=== PATIENT | female | born 1965 | race Caucasian/White ===

== ENCOUNTER → 2016-07-31 | Outpatient (CLI) | payer BC ==
--- NOTE | 2016-08-01 11:12 | MM ---
Reason for exam: screening (asymptomatic). Last mammogram was performed 2 years and 10 months ago. History: Taking hormonal contraceptives. Physical Findings: A clinical breast exam by your physician is recommended on an annual basis and results should be correlated with mammographic findings. MG Screening Mammo w CAD Bilateral CC and MLO view(s) were taken. Prior study comparison: October 06, 2013, bilateral MG screening mammo w CAD. November 27, 2011, bilateral digital screening mammo w/CAD. June 20, 2010, bilateral digital screening mammo w/CAD. There are scattered fibroglandular densities. No significant changes when compared with prior studies. ASSESSMENT: Negative, BI-RAD 1 RECOMMENDATION: Routine screening mammogram of both breasts in 1 year.
== END | disposition home or self-care (01) ==
LOC: RADMAMWWP 13:06
PROVIDERS: ATTEND Obstetrics & Gynecology
DX: Z12.31 Encounter for screening mammogram for malignant neoplasm of breast (principal)

== ENCOUNTER → 2016-10-03 | Outpatient (CLI) | payer BC ==
--- NOTE | 2016-10-03 21:23 | CT ---
EXAMINATION TYPE: CT abdomen pelvis w con DATE OF EXAM: 10/03/2016 COMPARISON: NONE HISTORY: Left lower quadrant pain & bloating CT DLP: 432.5 mGycm Automated exposure control for dose reduction was used. TECHNIQUE: Helical acquisition of images from the lung bases through the pelvis have been completed. CONTRAST: Performed with Oral Contrast and with IV Contrast, patient injected with 100 mL of Omnipaque 300. FINDINGS: LUNG BASES: No significant abnormality is appreciated. AORTA: No significant abnormality is appreciated. LIVER/GB: No significant abnormality is appreciated. PANCREAS: No significant abnormality is seen. SPLEEN: No significant abnormality is seen. ADRENALS: No significant abnormality is seen. KIDNEYS: No significant abnormality is seen. REPRODUCTIVE ORGANS: Left adnexal region shows a ring-enhancing focus likely within the ovary measuri ng 18 mm x 26 m with central low attenuation. BOWEL: Some diverticular changes associated with the sigmoid colon and there is retained fecal debri s throughout the distribution of the colon FREE AIR: No Free Air visible. ASCITES: None visible. PELVIC ADENOPATHY: None visualized. RETROPERITONEAL ADENOPATHY: No Retroperitoneal Adenopathy visible. URINARY BLADDER: No significant abnormality is seen. OSSEOUS STRUCTURES: No significant abnormality is seen. IMPRESSION: THERE MAY BE INVOLUTION OF THE LEFT OVARIAN CYST, FOLLOW-UP SUGGESTED. DIVERTICULOSIS.
== END | disposition home or self-care (01) ==
LOC: RADCTMAIN 17:32
PROVIDERS: ATTEND Family Medicine
DX: R10.32 Left lower quadrant pain (principal)
CPT/HCPCS: 74177; Q9967

== ENCOUNTER → 2017-11-26 | Outpatient (CLI) | payer BC ==
--- NOTE | 2017-11-27 11:18 | MM ---
Reason for exam: screening (asymptomatic). Last mammogram was performed 1 year and 4 months ago. History: Taking hormonal contraceptives. Physical Findings: A clinical breast exam by your physician is recommended on an annual basis and results should be correlated with mammographic findings. MG 3D Screening Mammo W/Cad Bilateral CC and MLO view(s) were taken. Prior study comparison: July 31, 2016, bilateral MG screening mammo w CAD. October 06, 2013, bilateral MG screening mammo w CAD. The breast tissue is heterogeneously dense. This may lower the sensitivity of mammography. No significant changes when compared with prior studies. ASSESSMENT: Negative, BI-RAD 1 RECOMMENDATION: Routine screening mammogram of both breasts in 1 year.
== END ==
LOC: RADMAMWWP 16:31
PROVIDERS: ATTEND Obstetrics & Gynecology
DX: Z12.31 Encounter for screening mammogram for malignant neoplasm of breast (principal)
CPT/HCPCS: 77063; 77067

== ENCOUNTER 2018-05-09 11:19 | Emergency (ER) | payer BC ==
[2018-05-09] MEDS ORDERED: KETOROLAC 30 MG/ML 1 ML VIAL IVP STA (12:03)
[2018-05-09] MEDS ORDERED: SODIUM CHLORIDE 0.9% 1,000 ML IV STA (12:03)
[2018-05-09] MEDS ORDERED: MORPHINE SULFATE 4 MG/ML SYRINGE IV STA (12:03)
--- NOTE | 2018-05-09 12:36 | ED ---
Abdominal Pain HPI - General Chief Complaint: Abdominal Pain Stated Complaint: Left sided flank pain Time Seen by Provider: 05/09/18 11:24 Source: patient, RN notes reviewed, old records reviewed Mode of arrival: ambulatory Limitations: no limitations - History of Present Illness Initial Comments: This is a 52-year-old female the ER today. This patient presents today for evaluation regards to abdominal pain. Patient is has been to abdominal pain for years. Abnormal vaginal bleeding for 21 years, abdominal pain for about 8 years, history of colonoscopy showing diverticulosis an episode of diverticulitis 1 year ago. Patient states pain feels similar to both of these events currently. Denies fevers. No abnormal bowel movements. No dysuria MD Complaint: abdominal pain (Left lower quadrant), flank pain, other (Suprap ubic pain) -: days(s), week(s), month(s), year(s) Location: LLQ, suprapubic Radiation: LLQ, suprapubic Migration to: suprapubic Severity: moderate Severity scale (1-10): 7 Quality: cramping, aching Consistency: constant Improves With: nothing Worsens With: nothing Associated Symptoms: nausea, constipation - Related Data Home Medications Medication Instructions Recorded Confirmed Evening [place] Oil 500 mg PO W/SUPPER 01/11/17 05/09/18 Magnesium 1 tab PO W/SUPPER 01/11/17 05/09/18 Vitamin C/Biotin [Hair, Skin and 1 tab PO W/SUPPER 01/11/17 05/09/18 Nails] Fluticasone Propionate [Flonase 1 spray EA NOSTRIL DAILY PRN 05/09/18 05/09/18 Allergy Relief] [place] 1 tab PO W/SUPPER 05/09/18 05/09/18 Vegan Women's Multi 1 tab PO W/SUPPER 05/09/18 05/09/18 Allergies Allergy/AdvReac Type Severity Reaction Status Date / Time codeine AdvReac Nausea & Verified 05/09/18 12:18 Vomiting latex AdvReac Dyspnea Verified 05/09/18 12:18 Review of Systems ROS Statement: Those systems with pertinent positive or pertinent negative responses have been documented in the HPI. ROS Other: All systems not noted in ROS Statement are negative. Past Medical History Past Medical History: Asthma Additional Past Medical History / Comment(s): LOWER LEFT ABD PAIN (LEFT OVARIAN CYST) PER PATIENT. Trigeminal neuralgia. Diverticulosis/itis. History of Any Multi-Drug Resistant Organisms: None Reported Past Surgical History: Section Additional Past Surgical History / Comment(s): DIAGNOSTIC LAB (2014). foot surgery and cystoscopy Past Anesthesia/Blood Transfusion Reactions: Motion Sickness Past Psychological History: No Psychological Hx Reported Smoking Status: Never smoker Past Alcohol Use History: Rare Past Drug Use History: None Reported - Past Family History Mother Family Medical History: No Reported History General Exam Limitations: no limitations General appearance: alert, in no apparent distress Head exam: Present: atraumatic, normocephalic, normal inspection Eye exam: Present: normal appearance, PERRL, EOMI. Absent: scleral icterus, conjunctival injection, periorbital swelling ENT exam: Present: normal exam, mucous membranes moist Neck exam: Present: normal inspection. Absent: tenderness, meningismus, lymphadenopathy Respiratory exam: Present: normal lung sounds bilaterally. Absent: respiratory distress, wheezes, rales, rhonchi, stridor Cardiovascular Exam: Present: regular rate, normal rhythm, normal heart sounds. Absent: systolic murmur, diastolic murmur, rubs, gallop, clicks GI/Abdominal exam: Present: soft, tenderness, guarding (Suprapubic and left lower quadrant), normal bowel sounds. Absent: distended, rebound, rigid Extremities exam: Present: normal inspection, full ROM, normal capillary refill. Absent: tenderness, pedal edema, joint swelling, calf tenderness Back exam: Present: normal inspection Neurological exam: Present: alert, oriented X3, CN II-XII intact Psychiatric exam: Present: normal affect, normal mood Skin exam: Present: warm, dry, intact, normal color. Absent: rash Course Vital Signs 05/09/18 11:21 Temperature 97.8 F Pulse Rate 82 Respiratory 20 Rate Blood Pressure 132/60 O2 Sat by Pulse 100 Oximetry - Reevaluation(s) Reevaluation #1: 05/09/18 12:45 Medical records reviewed Reevaluation #2: 05/09/18 12:45 Patient's pain is improved Medical Decision Making - Medical Decision Making 52 female the ER for evaluation presents today for evasive abdominal pain positive diverticulitis, we'll trial outpatient therapy. - Lab Data Result diagrams: 05/09/18 12:31 05/09/18 12:31 Lab Results 05/09/18 05/09/18 05/09/18 Range/Units 12:31 12:31 12:31 WBC 10.9 H (3.8-10.6) k/uL RBC 4.38 (3.80-5.40) m/uL Hgb 13.2 (11.4-16.0) gm/dL Hct 40.0 (34.0-46.0) % MCV 91.5 (80.0-100.0) fL MCH 30.2 (25.0-35.0) pg MCHC 33.0 (31.0-37.0) g/dL RDW 12.5 (11.5-15.5) % Plt Count 311 (150-450) k/uL Neutrophils % 79 % Lymphocytes % 14 % Monocytes % 4 % Eosinophils % 1 % Basophils % 1 % Neutrophils # 8.6 H (1.3-7.7) k/uL Lymphocytes # 1.6 (1.0-4.8) k/uL Monocytes # 0.5 (0-1.0) k/uL Eosinophils # 0.1 (0-0.7) k/uL Basophils # 0.1 (0-0.2) k/uL Sodium 138 (137-145) mmol/L Potassium 4.5 (3.5-5.1) mmol/L Chloride 104 (98-107) mmol/L Carbon Dioxide 22 (22-30) mmol/L Anion Gap 12 mmol/L BUN 17 (7-17) mg/dL Creatinine 0.90 (0.52-1.04) mg/dL Est GFR (CKD-EPI)AfAm 86 (>60 ml/min/1.73 sqM) Est GFR (CKD-EPI)NonAf 75 (>60 ml/min/1.73 sqM) Glucose 81 (74-99) mg/dL Plasma Lactic Acid Andrew 0.9 (0.7-2.0) mmol/L Calcium 10.0 (8.4-10.2) mg/dL Total Bilirubin 1.6 H (0.2-1.3) mg/dL AST 26 (14-36) U/L ALT 29 (9-52) U/L Alkaline Phosphatase 45 (38-126) U/L Total Protein 7.1 (6.3-8.2) g/dL Albumin 4.5 (3.5-5.0) g/dL Amylase <30 L (30-110) U/L Lipase 37 (23-300) U/L Urine Color Urine Appearance (Clear) Urine pH (5.0-8.0) Ur Specific [place] (1.001-1.035) Urine Protein (Negative) Urine Glucose (UA) (Negative) Urine Ketones (Negative) Urine Blood (Negative) Urine Nitrite (Negative) Urine Bilirubin (Negative) Urine Urobilinogen (<2.0) mg/dL Ur Leukocyte Esterase (Negative) Urine RBC (0-5) /hpf Urine WBC (0-5) /hpf Ur Squamous Epith Cells (0-4) /hpf Urine Mucus (None) /hpf 05/09/18 Range/Units 12:31 WBC (3.8-10.6) k/uL RBC (3.80-5.40) m/uL Hgb (11.4-16.0) gm/dL Hct (34.0-46.0) % MCV (80.0-100.0) fL MCH (25.0-35.0) pg MCHC (31.0-37.0) g/dL RDW (11.5-15.5) % Plt Count (150-450) k/uL Neutrophils % % Lymphocytes % % Monocytes % % Eosinophils % % Basophils % % Neutrophils # (1.3-7.7) k/uL Lymphocytes # (1.0-4.8) k/uL Monocytes # (0-1.0) k/uL Eosinophils # (0-0.7) k/uL Basophils # (0-0.2) k/uL Sodium (137-145) mmol/L Potassium (3.5-5.1) mmol/L Chloride (98-107) mmol/L Carbon Dioxide (22-30) mmol/L Anion Gap mmol/L BUN (7-17) mg/dL Creatinine (0.52-1.04) mg/dL Est GFR (CKD-EPI)AfAm (>60 ml/min/1.73 sqM) Est GFR (CKD-EPI)NonAf (>60 ml/min/1.73 sqM) Glucose (74-99) mg/dL Plasma Lactic Acid Andrew (0.7-2.0) mmol/L Calcium (8.4-10.2) mg/dL Total Bilirubin (0.2-1.3) mg/dL AST (14-36) U/L ALT (9-52) U/L Alkaline Phosphatase (38-126) U/L Total Protein (6.3-8.2) g/dL Albumin (3.5-5.0) g/dL Amylase (30-110) U/L Lipase (23-300) U/L Urine Color Yellow Urine Appearance Clear (Clear) Urine pH 5.5 (5.0-8.0) Ur Specific [place] 1.023 (1.001-1.035) Urine Protein Negative (Negative) Urine Glucose (UA) Negative (Negative) Urine Ketones 2+ H (Negative) Urine Blood Small H (Negative) Urine Nitrite Negative (Negative) Urine Bilirubin Negative (Negative) Urine Urobilinogen <2.0 (<2.0) mg/dL Ur Leukocyte Esterase Negative (Negative) Urine RBC 2 (0-5) /hpf Urine WBC 1 (0-5) /hpf Ur Squamous Epith Cells 2 (0-4) /hpf Urine Mucus Rare H (None) /hpf - Radiology Data Radiology results: report reviewed (CT abdomen pelvis positive for diverticulitis ultrasound is negative), image reviewed Disposition Clinical Impression: Abdominal pain, Diverticulitis Disposition: HOME SELF-CARE Condition: Good Instructions (If sedation given, give patient instructions): Diverticulitis (ED), Diverticulitis Diet (ED) Is patient prescribed a controlled substance at d/c from ED?: No Referrals: Josh Huber DO [Primary Care Provider] - 1-2 days
[2018-05-09 12:44] LABS: Basophils # (A) 0.1 k/uL (0-0.2); Basophils % (A) 1 %; Eosinophils # (A) 0.1 k/uL (0-0.7); Eosinophils % (A) 1 %; HGB 13.2 gm/dL (11.4-16.0); Lymphocytes # (A) 1.6 k/uL (1.0-4.8); Lymphocytes % (A) 14 %; MCH 30.2 pg (25.0-35.0); MCV 91.5 fL (80.0-100.0); Mean Platelet Volume 7.4; Monocytes # (A) 0.5 k/uL (0-1.0); Monocytes % (A) 4 %; Neutrophils # (A) 8.6 k/uL (1.3-7.7); Neutrophils % (A) 79 %; Platelet Count 311 k/uL (150-450); RBC 4.38 m/uL (3.80-5.40); RDW 12.5 % (11.5-15.5); WBC 10.9 k/uL (3.8-10.6)
[2018-05-09 12:50] LABS: ALT 29 U/L (9-52); AST 26 U/L (14-36); Albumin 4.5 g/dL (3.5-5.0); Alkaline Phosphatase 45 U/L (38-126); Amylase <30 U/L (30-110); Anion Gap 12 mmol/L; Blood Urea Nitrogen 17 mg/dL (7-17); Carbon Dioxide 22 mmol/L (22-30); Chloride 104 mmol/L (98-107); Glucose 81 mg/dL (74-99); Lipase 37 U/L (23-300); Potassium 4.5 mmol/L (3.5-5.1); Sodium 138 mmol/L (137-145); Total Bilirubin 1.6 mg/dL (0.2-1.3); Total Protein 7.1 g/dL (6.3-8.2)
[2018-05-09 12:51] LABS: Appearance,Urine Clear (Clear); Bilirubin,Urine Negative (Negative); Blood,Urine Small (Negative); Color,Urine Yellow; Glucose,Urine (UA) Negative (Negative); Ketones,Urine 2+ (Negative); Leukocyte Esterase,Urine Negative (Negative); Mucus,Urine Rare /hpf; Nitrite,Urine Negative (Negative); PH, Urine 5.5 (5.0-8.0); Protein,Urine Negative (Negative); RBC,Urine 2 /hpf (0-5); Specific Gravity,Urine 1.023 (1.001-1.035); Squamous Epithelial Cell,Urine 2 /hpf (0-4); Urobilinogen,Urine <2.0 mg/dL (<2.0); WBC,Urine 1 /hpf (0-5)
--- NOTE | 2018-05-09 13:39 | CT ---
EXAMINATION TYPE: CT abdomen pelvis w con DATE OF EXAM: 05/09/2018 COMPARISON: 10/03/2016 HISTORY: 52-year-old female with left lower quadrant pain, anterior and posterior pain TECHNIQUE: Contiguous axial scanning of the abdomen and pelvis following administration of 100 ml Iso anabela 300 IV contrast. Delayed images through the kidneys and coronal/sagittal reconstructions perform ed. CT DLP: 587.9 mGycm Automated exposure control for dose reduction was used. FINDINGS: Heart normal size of the pericardial effusion. Lung bases clear without pleural effusion. No focal liver lesion or biliary ductal dilatation. Portal venous system is patent. Gallbladder, adrenal glands, kidneys, and spleen appear within normal. Tiny 5 mm hypodense area at the pancreatic head region, axial image 29. In retrospect, this seems to present on 10/03/2016. Stability for over a year compatible with a benign etiology. No dilated small bowel, free fluid, or free air. Appendix not clearly identified. No secondary findings of acute appendicitis. No mesenteric or retroperitoneal lymphadenopathy seen. Moderate stool throughout the colon. The transverse colon is redundant and low hanging into the anter ior lower pelvis. There is sigmoid diverticulosis with focal moderate to severe circumferential wall thickening and mod erate surrounding inflammatory fat stranding along the proximal to mid sigmoid. Bladder nondistended. Uterus and ovaries are visualized. No abnormal fluid collection in the pelvis o r pelvic lymphadenopathy seen. Bones: Degenerative disc disease L5-S1. Facet arthropathy lower lumbar spine. IMPRESSION: SIGMOID DIVERTICULOSIS WITH EXAM POSITIVE FOR ACUTE DIVERTICULITIS ALONG THE PROXIMAL TO MID SIGMOID. THERE IS MODERATE TO SEVERE INFLAMMATION WITHOUT ABSCESS OR FREE AIR IDENTIFIED.
--- NOTE | 2018-05-09 13:56 | US ---
EXAMINATION TYPE: US transvaginal DATE OF EXAM: 05/09/2018 COMPARISON: CT & US CLINICAL HISTORY: Pain. Pt states LLQ pain TECHNIQUE: Transvaginal (TV). Transvaginal sonographic images of the pelvis were acquired. Date of LMP: 04/29/2018 EXAM MEASUREMENTS: Uterus: 7.3 x 3.8 x 4.1 cm Endometrial Stripe: 0.8 cm Right Ovary: 1.7 x 1.1 x 1.8 cm Left Ovary: 2.2 x 1.6 x 0.9 cm 1. Uterus: Anteverted Heterogeneous 2. Endometrium: ?poorly defined dawkins/ thickened for pt's cycle 3. Right Ovary: wnl 4. Left Ovary: wnl Spectral, color and waveform doppler imaging shows good arterial and venous flow within the ovaries ; there is no evidence for ovarian torsion. 5. Bilateral Adnexa: wnl 6. Posterior cul-de-sac: wnl No abnormality visualized to account for pt's symptoms IMPRESSION: 1. Nonspecific myometrial heterogeneity.
[2018-05-09 14:46] VITALS: BP 112/64; PULSE 69; RESP 16; TEMP 98
== END 2018-05-09 15:00 | disposition home or self-care (01) ==
LOC: EC 11:19
DX: K57.32 Diverticulitis of large intestine without perforation or abscess without bleeding (principal); Z79.899 Other long term (current) drug therapy; Z88.5 Allergy status to narcotic agent; Z91.040 Latex allergy status
CPT/HCPCS: 36415; 80053; 82150; 83605; 83690; 85025; 81001; 87086; 93975; 76830; 74177; 99285; 96374; 96375; 96361 ×2; J2270; J1885; Q9967

== ENCOUNTER → 2018-08-13 | Outpatient (CLI) | payer BC ==
[2018-08-13 13:46] VITALS: BP 126/76; PULSE 73; RESP 16; TEMP 97.8; BMI 27.6
--- NOTE | 2018-08-13 15:03 | P.HPOB ---
History of Present Illness H&P Date: 08/13/18 Chief Complaint: The patient is here for her routine gynecologic exam. This is a 52-year-old with an LMP of 08/04/2018. The patient is here to establish with this office. It has been about one year since her last pelvic exam. She has a history of painful periods and PMS. She typically has pains in her legs, low back pain and left lower quadrant pains around the time of her period. She was started on Seasonique to decrease the frequency of her painful periods and to help with the dysmenorrhea. She used this for one year and states the menstrual periods were less frequent and less painful. Her prescription ran out last week. She would like to go back on Seasonique. Menstrual periods have not been heavy. She has had problems with diverticulitis and was seen in the emergency room on 05/09/2018 because of left lower quadrant pain. Pelvic ultrasound showed normal ovaries. CT scan of the abdomen and pelvis showed acute diverticulitis of the sigmoid colon. She is currently having similar left lower quadrant pains as when she was diagnosed with diver ticulitis. Her is status post vasectomy. Review of Systems The patient's weight has been stable over the last year. She denies respiratory or cardiac problems. G.I.: she has had problems with diverticulitis as in the HPI. She has only had a small ball movement in the last 2 days. Past Medical History Past Medical History: Asthma Additional Past Medical History / Comment(s): Trigeminal neuralgia. Diverticulosis/itis. 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 She has been given the diagnosis of endometriosis. History of Any Multi-Drug Resistant Organisms: None Reported Past Surgical History: Section Additional Past Surgical History / Comment(s): DIAGNOSTIC LAPAROSCOPY (2014). foot surgery and cystoscopy. Past Anesthesia/Blood Transfusion Reactions: Motion Sickness Past Psychological History: No Psychological Hx Reported Smoking Status: Never smoker Past Alcohol Use History: Occasional (4 per week) Past Drug Use History: None Reported Additional History: She has been since 1988 and works at a dentist office in the front office. - Past Family History Mother Additional Family Medical History / Comment(s): Macular degeneration. Father Family Medical History: Myocardial Infarction (ME) Maternal uncle Family Medical History: Cancer Additional Family Medical History / Comment(s): Peritoneal cancer. Medications and Allergies Home Medications Medication Instructions Recorded Confirmed Type Magnesium 1 tab PO W/SUPPER 01/11/17 05/09/18 History Vitamin C/Biotin [Hair, Skin and 1 tab PO W/SUPPER 01/11/17 05/09/18 History Nails] Fluticasone Propionate [Flonase 1 spray EA NOSTRIL DAILY PRN 05/09/18 05/09/18 History Allergy Relief] Naproxen [Naprosyn] 500 mg PO Q12HR PRN #30 tab 05/09/18 Rx Cholecalciferol (Vitamin D3) 2,000 unit PO 08/13/18 History [Vitamin D3] Allergies Allergy/AdvReac Type Severity Reaction Status Date / Time codeine AdvReac Nausea & Verified 08/13/18 13:46 Vomiting latex AdvReac Dyspnea Verified 08/13/18 13:46 Exam Vital Signs Temp Pulse Resp BP Pulse Ox 08/13/18 13:22 97.8 F 73 16 126/76 100 Intake and Output 08/12/18 08/13/18 08/13/18 22:59 06:59 14:59 Other: Weight 66.224 kg Height 5'1", weight 146 pounds, BMI 27.6. This is a well-developed well-nourished white female who is alert and oriented times 3 in no acute distress. HEENT: Within normal limits. NECK: Supple without mass or thyromegaly. CHEST AND LUNGS: Clear to auscultation. HEART: Regular rate and rhythm. BREASTS: Are without mass or discharge. AXILLARY EXAM: Negative for adenopathy. BACK: Negative for CVA tenderness. ABDOMEN: Soft, mild left lower quadrant tenderness without rebound tenderness and without palpable masses. PELVIC EXAM: Normal external genitalia. Cervix and vagina appear normal with a scant amount of old menstrual blood. There is no unusual discharge. There is no evidence of prolapse. The uterus is midposition, nongravid size and nontender. There are no palpable adnexal masses or tenderness. RECTAL EXAM: rectovaginal exam reveals a firmness in the left pelvic area most consistent with colonic stool and this is mildly tender.. EXTREMITIES: Nontender. IMPRESSION: 1. 52 year old female with history of dysmenorrhea and endometriosis which was somewhat improved on semi continuous oral contraception. 2. History of left lower quadrant abdominal pain with diverticulosis and diverticulitis. Possible flareup at this time. Differential diagnosis will also include endometriosis. PLAN: 1. Pap smear was performed. 2. Self breast awareness was discussed with the patient. 3. I recommended that she discuss follow-up for her diverticulosis and diverticulitis with her primary care physician or G.I. specialist. 4. Since she had a pelvic ultrasound and CT scan on 05/09/2018 for similar left lower quadrant pain and symptoms, and no gynecologic problems were found, I do not think repeating the ultrasound is necessary at this time. 5. Since she is at the typical age of the menopausal change, we have discussed ways of trying to determine if she is menopausal which could be masked with control pills. Since her prescription ran out and she was supposed to start the new pack of pills 2 days ago, she will not take control pills at this time and we will see if she is still having menstrual periods. If she starts a normal menstrual period, she will restart the Seasonique semi continuous pills. She will start them on the Sunday following the onset of the normal menstrual flow. If she goes several months without a menstrual period, she will see how her endometriosis is with time. She has already undergone a diagnostic laparoscopy in recent years. 6. The electronic prescription for her control pills will be sent to [facility] pharmacy on [address] [facility]. 7. We have discussed possible side effects and risks with control pills. We have discussed the increased risk for blood clots, heart attack, and stroke. Being that she is healthy and does not smoke, I feel the benefits for using the control pills outweighs the risks at this time. 7. She will return in one year and PRN.
== END ==
LOC: WWCWWP 13:16
PROVIDERS: ATTEND Obstetrics & Gynecology
DX: Z53.9 Procedure and treatment not carried out, unspecified reason (principal)

== ENCOUNTER → 2019-03-18 | Outpatient (CLI) | payer BC ==
[2019-03-18 15:21] VITALS: BP 119/77; PULSE 69; RESP 18; TEMP 97.6
--- NOTE | 2019-03-18 16:09 | P.PN ---
Progress Note - Text Progress Note Date: 03/18/19 Chief Complaint: Long-standing left lower quadrant pain with menstrual periods. HPI: This is a 53-year-old with an LMP of 03/15/2019. She has a long history of dysmenorrhea which is typically felt in the left lower quadrant. Her menstrual periods are regular every month. They typically last 4 days with several days of spotting after. The 4 days of menstrual flow tends to be when she experiences the pelvic and left lower quadrant pains. She does have a history of diverticulosis and her pains have been attributed to diverticulosis and diverticulitis. For many years she has been treated with oral contraception with some improvement. We were planning on restarting Seasonale when she was seen on 08/13/2018, however she decided not to restart the control pills. Each menstrual period up until her LMP was quite painful and this affected her daily lifestyle. Her LMP however was not painful like her other menstrual periods. She has recently started a new diet with low sugars and low carbohydrates and she thinks this may be helping with her menstrually related pains. She had made this appointment prior to her LMP thinking that she would want to discuss surgical options such as hysterectomy. ROS: She denies respiratory, cardiac, or GI problems. PE: Blood pressure: 77, Height: 5 feet 1 inch, Weight: 140 pounds, Temperature: 97.6, Pulse: 69. Pulse oximeter 100%. This is a well developed, well nourished, white female who is alert and orientedx3, in no acute distress. Pelvic exam: There is no cervical motion tenderness. The uterus is midposition, nongravid size, and nontender. There is mild left adnexal tenderness without palpable masses. There is no significant right tenderness. Previous studies: CT scan of the abdomen and pelvis done on 05/09/2018 showed diverticulitis of the sigmoid colon. Pelvic ultrasound showed normal ovaries. Impression: 1. 53-year-old female with a long history of left lower quadrant dysmenorrhea and diverticulosis. 2. Mild left pelvic tenderness on exam today. Plan: 1. We had a long discussion regarding her symptoms. She does feel that her diet changes may be helping with her menstrually associated pains. We will continue conservative measures with continued dietary changes to see if she has improvement with her future menstrual periods. We also discussed how statistically, she is past the average age of menopause, however some women do go as late as 55 or 56 years of age. We discussed possible surgical options such as diagnostic laparoscopy, laparoscopic oophorectomy as well as hysterectomy with BSO which can be done laparoscopically as well. 2. At this time we will do some blood tests try to determine if she is approaching the menopausal change since I expect her menstrually related pains to stop when her menstrual periods stopped. FSH, estradiol and anti-mullerian hormone will be drawn today. She is also having other blood tests done as ordered by Dr. Huber. 3. She will keep a menstrual and symptom diary. If she returns to having very painful menstrual periods, we will consider referral for possible surgical intervention. 4. Mammogram was done earlier today. 5. She will also return in approximately 5 months for her annual examination and as needed. Time spent with the patient: 25 minutes
[2019-03-18 16:56] LABS: HCT 37.4 % (34.0-46.0); HGB 12.6 gm/dL (11.4-16.0); MCH 31.4 pg (25.0-35.0); MCHC 33.7 g/dL (31.0-37.0); MCV 93.3 fL (80.0-100.0); Mean Platelet Volume 8.1; Platelet Count 258 k/uL (150-450); RDW 12.6 % (11.5-15.5); WBC 6.1 k/uL (3.8-10.6)
[2019-03-18 17:03] LABS: Appearance,Urine Clear (Clear); Bilirubin,Urine Negative (Negative); Blood,Urine Moderate (Negative); Color,Urine Yellow; Glucose,Urine (UA) Negative (Negative); Ketones,Urine 2+ (Negative); Leukocyte Esterase,Urine Negative (Negative); Mucus,Urine Rare /hpf; Nitrite,Urine Negative (Negative); Protein,Urine Negative (Negative); RBC,Urine 1 /hpf (0-5); Specific Gravity,Urine 1.021 (1.001-1.035); Squamous Epithelial Cell,Urine 5 /hpf (0-4); Urobilinogen,Urine <2.0 mg/dL (<2.0); WBC,Urine <1 /hpf (0-5)
[2019-03-18 17:04] LABS: ALT 18 U/L (4-34); AST 32 U/L (14-36); African American GFR (CKD) >90 (>60 ml/min/1.73 sqM); Albumin 4.7 g/dL (3.5-5.0); Alkaline Phosphatase 50 U/L (38-126); Anion Gap 9 mmol/L; Blood Urea Nitrogen 13 mg/dL (7-17); Calcium 9.7 mg/dL (8.4-10.2); Carbon Dioxide 26 mmol/L (22-30); Chloride 103 mmol/L (98-107); Cholesterol 183 mg/dL (<200); Glucose 81 mg/dL (74-99); HDL Cholesterol 93 mg/dL (40-60); LDL Cholesterol,Calculated 80 mg/dL (0-99); Magnesium 2.1 mg/dL (1.6-2.3); Non-African American GFR(CKD) >90 (>60 ml/min/1.73 sqM); Potassium 4.5 mmol/L (3.5-5.1); Sodium 138 mmol/L (137-145); Total Protein 7.6 g/dL (6.3-8.2); Triglycerides 50 mg/dL (<150)
[2019-03-19 00:23] LABS: Estradiol 37.1 pg/mL; Follicle Stimulating Hormone 19.9 mIU/mL
[2019-03-19 02:12] LABS: Hepatitis B Surface AB- Quant 141.3 mIU/mL; Hepatitis B Surface Antibody Reactive (Non-Reactive)
--- NOTE | 2019-03-19 11:16 | MM ---
Reason for exam: screening (asymptomatic). Last mammogram was performed 1 year and 4 months ago. History: Taking hormonal contraceptives. Physical Findings: A clinical breast exam by your physician is recommended on an annual basis and results should be correlated with mammographic findings. MG 3D Screening Mammo W/Cad Bilateral CC and MLO view(s) were taken. Prior study comparison: November 26, 2017, bilateral MG 3d screening mammo w/cad. July 31, 2016, bilateral MG screening mammo w CAD. The breast tissue is heterogeneously dense. This may lower the sensitivity of mammography. There is no discrete abnormality. No significant changes when compared with prior studies. ASSESSMENT: Negative, BI-RAD 1 RECOMMENDATION: Routine screening mammogram of both breasts in 1 year.
--- NOTE | 2019-03-19 13:27 | P.PN ---
Progress Note - Text Progress Note Date: 03/19/19 OUTPATIENT FOLLOW-UP NOTE TEST(S)/RESULTS: Partial test results from 03/18/2019 include FSH of 19.9 and estradiol of 37. METHOD OF NOTIFICATION: She was notified by phone. PATIENT COMMENTS: DIAGNOSIS: Blood tests suggestive of early perimenopause. DISCUSSION: The anti-mullerian hormone was also drawn and is pending. We will see if this can help us to try to determine how close she is to menopause. We discussed how her other blood tests are suggestive of the early menopausal changes. PLAN: Await [facility] and we will see how her next few menstrual periods go.
== END | disposition home or self-care (01) ==
LOC: RADMAMWWP 15:01
PROVIDERS: ATTEND Obstetrics & Gynecology
DX: Z12.31 Encounter for screening mammogram for malignant neoplasm of breast (principal); Z00.00 Encounter for general adult medical examination without abnormal findings; N94.5 Secondary dysmenorrhea
CPT/HCPCS: 36415; 77063; 77067; 80053; 80061; 81001; 82306; 82397; 82670; 83001; 83735; 84443; 85027; 86706

== ENCOUNTER → 2019-12-09 | Outpatient (CLI) | payer BC ==
[2019-12-09 16:01] VITALS: BP 119/84; PULSE 73; RESP 18; TEMP 97.9
--- NOTE | 2019-12-09 16:44 | P.HPOB ---
History of Present Illness H&P Date: 12/09/19 Chief Complaint: The patient is here for her routine gynecologic exam. This is a 54-year-old with an LMP of 10/27/2019. The patient has a history of dysmenorrhea and previously used Seasonique to help with the painful periods. She has been off of Seasonique and states her periods have become much shorter. They previously lasted 4 days and now are lasting 1-2 days. They continued to be painful but by being shorter they are tolerable. She also thinks that dietary changes that she is made have been very helpful as well. She does have some warm flashes which are tolerable. Her is status post vasectomy. Review of Systems The patient has lost 4 pounds over the last year. She denies respiratory, cardiac, or G.I. problems. Past Medical History Past Medical History: Asthma Additional Past Medical History / Comment(s): Trigeminal neuralgia. Diverticulosis/itis. 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 She has been given the diagnosis of endometriosis. History of Any Multi-Drug Resistant Organisms: None Reported Past Surgical History: Section Additional Past Surgical History / Comment(s): DIAGNOSTIC LAPAROSCOPY (2014). foot surgery and cystoscopy. 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 - Past Family History Mother Additional Family Medical History / Comment(s): Macular degeneration. Father Family Medical History: Myocardial Infarction ([place]) Maternal uncle Family Medical History: Cancer Additional Family Medical History / Comment(s): Peritoneal cancer. Medications and Allergies Home Medications Medication Instructions Recorded Confirmed Type Magnesium 1 tab PO W/SUPPER 01/11/17 12/09/19 History Vitamin C/Biotin [Hair, Skin and 1 tab PO W/SUPPER 01/11/17 12/09/19 History Nails] Naproxen [Naprosyn] 500 mg PO Q12HR PRN #30 tab 05/09/18 12/09/19 Rx Cholecalciferol (Vitamin D3) 2,000 unit PO DAILY 08/13/18 12/09/19 History [Vitamin D3] Aloe Vera 5,000 mg PO DAILY 03/18/19 12/09/19 History Athletic Greens 1 pack PO DAILY 03/18/19 12/09/19 History Inulin/Chromium Picolinate [Fiber 1 each PO DAILY 03/18/19 12/09/19 History Gummies Chew] L.acidoph,Paracasei, B.lactis 1 each PO DAILY 03/18/19 12/09/19 History [Probiotic] Licorice Root 1 tab PO DAILY 03/18/19 12/09/19 History Slippery Elm 1 tab PO DAILY 03/18/19 12/09/19 History Allergies Allergy/AdvReac Type Severity Reaction Status Date / Time codeine AdvReac Nausea & Verified 12/09/19 15:50 Vomiting latex AdvReac Dyspnea Verified 12/09/19 15:50 Exam Vital Signs Temp Pulse Resp BP Pulse Ox 12/09/19 15:55 97.9 F 73 18 119/84 100 Intake and Output 12/09/19 12/09/19 12/09/19 06:59 14:59 22:59 Other: Weight 64.41 kg Height 5 foot 1 inch, weight 142 pounds, BMI 26.8. This is a well-developed well-nourished white female who is alert and oriented times 3 in no acute distress. HEENT: Within normal limits. NECK: Supple without mass or thyromegaly. CHEST AND LUNGS: Clear to auscultation. HEART: Regular rate and rhythm. BREASTS: Are without mass or discharge. AXILLARY EXAM: Negative for adenopathy. BACK: Negative for CVA tenderness. ABDOMEN: Soft, nontender, without palpable masses. PELVIC EXAM: Normal external genitalia with minimal atrophy. Cervix and vagina appear normal with minimal atrophy. There is no unusual discharge. There is no evidence of prolapse. The uterus is midposition, nongravid size and nontender. There are no palpable adnexal masses or tenderness. RECTAL EXAM: Rectovaginal exam is negative for mass or tenderness and is negative for occult blood. EXTREMITIES: Nontender. IMPRESSION: 1. 54-year-old perimenopausal female with mild oligomenorrhea and shorter menstrual periods. Mild vasomotor symptoms. 2. History of dysmenorrhea which has become more tolerable with the menses are becoming less frequent and shorter. 3. Normal gynecologic exam. 4. Her is status post vasectomy. PLAN: 1. Pap smear was deferred since she had a normal one on 08/13/2018. 2. Self breast awareness was discussed with the patient. 3. Screening mammogram was done on 03/18/2019. The order slip for her mammog alban due in March was given to the patient. 4. Osteoporosis prevention was discussed. I have stressed the importance of adequate calcium, vitamin D and regular exercise. Recommended amounts of ca lcium and vitamin D were also discussed. 5. She will keep a menstrual calendar and call if menstrual problems. 6. She was advised to return in one year for her annual well woman exam.
== END | disposition home or self-care (01) ==
LOC: WWCWWP 15:45
PROVIDERS: ATTEND Obstetrics & Gynecology
DX: Z53.9 Procedure and treatment not carried out, unspecified reason (principal)

== ENCOUNTER → 2020-06-21 | Outpatient (CLI) | payer OTHER ==
--- NOTE | 2020-06-22 10:15 | MM ---
Reason for exam: screening (asymptomatic). Last mammogram was performed 1 year and 3 months ago. History: Taking hormonal contraceptives. Physical Findings: A clinical breast exam by your physician is recommended on an annual basis and results should be correlated with mammographic findings. MG 3D Screening Mammo W/Cad Bilateral CC and MLO view(s) were taken. Prior study comparison: March 18, 2019, bilateral MG 3d screening mammo w/cad. November 26, 2017, bilateral MG 3d screening mammo w/cad. The breast tissue is heterogeneously dense. This may lower the sensitivity of mammography. Benign appearing bilateral calcifications. No significant changes when compared with prior studies. ASSESSMENT: Benign, BI-RAD 2 RECOMMENDATION: Routine screening mammogram of both breasts in 1 year.
== END | disposition home or self-care (01) ==
LOC: RADMAMWWP 11:01
PROVIDERS: ATTEND Obstetrics & Gynecology
DX: Z12.31 Encounter for screening mammogram for malignant neoplasm of breast (principal)
CPT/HCPCS: 77063; 77067

== ENCOUNTER → 2021-01-05 | Outpatient (CLI) | payer OTHER ==
[2021-01-05 09:47] VITALS: BP 112/74; PULSE 70; RESP 16; TEMP 97.8
--- NOTE | 2021-01-05 10:43 | P.HPOB ---
History of Present Illness H&P Date: 01/05/21 Chief Complaint: The patient is here for her routine gynecologic exam. This is a 55-year-old with an LMP of 12/18/2020. The patient has been on [place] FE for dysmenorrhea and menstrually related symptoms. She states she has been doing well and her menstrual periods have been regular and short on oral contraception. She still has some pain with her menstrual periods, but states her moodiness has been much better with oral contraception. Her is status post vasectomy. Review of Systems The patient has gained 6 pounds over the last year. She denies respiratory, cardiac, or G.I. problems. Past Medical History Past Medical History: Asthma Additional Past Medical History / Comment(s): Trigeminal neuralgia. Diverticulosis/itis. 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 She has been given the diagnosis of endometriosis. History of Any Multi-Drug Resistant Organisms: None Reported Past Surgical History: Section Additional Past Surgical History / Comment(s): DIAGNOSTIC LAPAROSCOPY (2014). foot surgery and cystoscopy. 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 - Past Family History Mother Additional Family Medical History / Comment(s): Macular degeneration. Father Family Medical History: Myocardial Infarction ([place]) Maternal uncle Family Medical History: Cancer Additional Family Medical History / Comment(s): Peritoneal cancer. Medications and Allergies Home Medications Medication Instructions Recorded Confirmed Type Magnesium 1 tab PO W/SUPPER 01/11/17 01/05/21 History Vitamin C/Biotin [Hair, Skin and 1 tab PO W/SUPPER 01/11/17 01/05/21 History Nails] Naproxen [Naprosyn] 500 mg PO Q12HR PRN #30 tab 05/09/18 01/05/21 Rx Cholecalciferol (Vitamin D3) 2,000 unit PO DAILY 08/13/18 01/05/21 History [Vitamin D3] Aloe Vera 5,000 mg PO DAILY 03/18/19 01/05/21 History Athletic Greens 1 pack PO DAILY 03/18/19 01/05/21 History Inulin/Chromium Picolinate [Fiber 1 each PO DAILY 03/18/19 01/05/21 History Gummies Chew] L.acidoph,Paracasei, B.lactis 1 each PO DAILY 03/18/19 01/05/21 History [Probiotic] Slippery Elm 1 tab PO DAILY 03/18/19 01/05/21 History Ascorbic Acid [Vitamin C] 1,000 mg PO DAILY 01/05/21 01/05/21 History Flaxseed Oil 1,000 mg PO HS 01/05/21 01/05/21 History [place]-3 Fatty Acids [Sh[place]-3] 1,000 mg PO DAILY 01/05/21 01/05/21 History Querctin 2 tab PO DAILY 01/05/21 01/05/21 History Theanine [l-Theanine] 200 mg PO DAILY 01/05/21 01/05/21 History Turmeric Root Extract [Turmeric] 500 mg PO DAILY 01/05/21 01/05/21 History Zinc Gluconate [Zinc] 50 mg PO DAILY 01/05/21 01/05/21 History Allergies Allergy/AdvReac Type Severity Reaction Status Date / Time codeine AdvReac Nausea & Verified 01/05/21 09:37 Vomiting latex AdvReac Dyspnea Verified 01/05/21 09:37 Exam Vital Signs Temp Pulse Resp BP Pulse Ox 01/05/21 09:37 97.8 F 70 16 112/74 100 Height 5 feet 1 inch, weight 148 pounds, BMI 28. This is a well-developed well-nourished white female who is alert and oriented times 3 in no acute distress. HEENT: Within normal limits. NECK: Supple without mass or thyromegaly. CHEST AND LUNGS: Clear to auscultation. HEART: Regular rate and rhythm. BREASTS: Are without mass or discharge. AXILLARY EXAM: Negative for adenopathy. BACK: Negative for CVA tenderness. ABDOMEN: Soft, nontender, without palpable masses. PELVIC EXAM: Normal external genitalia with minimal atrophy. Cervix and vagina appear normal with minimal atrophy. There is no unusual discharge. There is no evidence of prolapse. The uterus is midposition, nongravid size and nontender. There are no palpable adnexal masses or tenderness. RECTAL EXAM: Rectovaginal exam is negative for mass or tenderness and is negative for occult blood. EXTREMITIES: Nontender. IMPRESSION: 1. 55-year-old perimenopausal female with normal gynecologic exam. 2. History of endometriosis and dysmenorrhea doing well on oral contraception. PLAN: 1. Pap smear cotest was performed. 2. Self breast awareness was discussed with the patient. We have also discussed symptoms associated with inflammatory breast cancer. 3. Screening mammogram was done on 06/21/2020 and was benign. The order slip for a mammogram next June was given to the patient. 4. Osteoporosis prevention was discussed. I have stressed the importance of adequate calcium, vitamin D and regular exercise. Recommended amounts of calcium and vitamin D were also discussed. 5. We have decided to have a trial off of oral contraception to determine if she is postmenopausal. She will keep a menstrual and symptom calendar. If she has having somewhat irregular menstrual periods and is having worsening menstrual symptoms and dysmenorrhea, we can consider to restart the low-dose oral contraception. If she is having amenorrhea with mild symptoms of menopause, I have recommended that we try to go without medication or hormone replacement therapy. If menopausal symptoms are severe, we can consider options including low-dose HRT. 6. She has not received Covid vaccination since she had a reaction to other vaccinations. She states her PCP has recommended not to get the Covid vaccination because of the reaction. 7. She was advised to return in one year for her annual well woman exam and as needed.
== END ==
LOC: WWCWWP 09:12
PROVIDERS: ATTEND Obstetrics & Gynecology
DX: Z01.419 Encounter for gynecological examination (general) (routine) without abnormal findings (principal); J45.909 Unspecified asthma, uncomplicated; Z87.42 Personal history of other diseases of the female genital tract; Z88.5 Allergy status to narcotic agent; Z91.040 Latex allergy status

== ENCOUNTER → 2022-08-01 | Outpatient (CLI) | payer OTHER ==
--- NOTE | 2022-08-02 17:08 | MM ---
Reason for Exam: Screening (asymptomatic). Last mammogram was performed 2 year(s) and 1 month(s) ago. Patient History: Menarche at age 12. First Full-Term at age 31. Late child-bearing (after 31). Patient has history of breast feeding. Progesterone, starting at age 56. Currently using Hormonal Contraceptives. Estrogen and Progesterone, starting at age 56. Last menstrual period: 05/25/2022 Risk Values: Velma 5 year model risk: 1.8%. NCI Lifetime model risk: 12.2%. Prior Study Comparison: 11/26/2017 Bilateral Screening Mammogram, [facility]. 03/18/2019 Bilateral Screening Mammogram, [facility]. 06/21/2020 Bilateral Screening Mammogram, [facility]. Tissue Density: The breast tissue is heterogeneously dense. This may lower the sensitivity of mammography. Findings: Analyzed By CAD. Pattern appears symmetrical and stable. No significant interval change is evident. No suspicious groups of microcalcifications, spiculated or lobular masses, architectural distortion or other secondary signs of malignancy are mammographically apparent. Overall Assessment: Benign, BI-RAD 2 Management: Screening Mammogram of both breasts in 1 year. A negative mammogram report should not preclude additional follow up of suspicious palpable abnormalities. Patient should continue monthly self breast exam. A clinical breast exam by your physician is recommended on an annual basis and results should be correlated with mammographic findings. Electronically signed and approved by: Josh Lainez D.O. Radiologis
== END | disposition home or self-care (01) ==
LOC: RADMAMWWP 16:50
PROVIDERS: ATTEND Obstetrics & Gynecology
DX: Z12.31 Encounter for screening mammogram for malignant neoplasm of breast (principal)
CPT/HCPCS: 77063; 77067